=== PATIENT | male | born 1965 | race Caucasian/White ===

== ENCOUNTER → 2017-02-12 | Outpatient (CLI) | payer BC ==
--- NOTE | 2017-02-12 15:22 | RADRPT ---
PROCEDURE: XR Pelvis 1 View and Left Hip 1 Views. CLINICAL INDICATION: Left hip pain TECHNIQUE: AP low pelvis and frog lateral views of the left hip were performed. COMPARISON: None. FINDINGS: The osseous structures are intact. No destructive bony lesions are observed. Severe narrowing of b oth hip joints is observed. Osteophytosis margins of the right acetabulum and along the margins of the left acetabulum and femoral head. Phleboliths are noted in the pelvis. IMPRESSION: Severe osteoarthritis of both hips. If further characterization is needed CT or MRI could be helpful. RPTAT: AA .Mick Nascimento MD, Date Time Electronically viewed and signed by .Mick Nascimento MD, on 02/12/2017 15:22 .P/
--- NOTE | 2017-02-13 03:39 | HKNOTE ---
DATE OF SERVICE: 02/12/2017 Dr. Taj Mcmillan [address] [place] [id number] Dear Taj, Thank you for referring Karel Negrete. He was seen in my office today complaining of pain in his lef t hip. He has severe degenerative osteoarthritis of both hips and will need to have a left hip replacement in the relatively near future followed by a right hip replacement. Unfortunately, he is markedly obese and weighs more than 350 pounds. There is no doubt that he will need to have the left hip surgery in the relatively near future, but I have encouraged him to try and lose weight. In particular, I asked him to return to you to discus s the pros and cons of gastric bypass procedure which may be the fastest way for him to achieve the goal of a 50 pound weight loss. Thank you for your confidence in referring him to my care. Enclosed is a copy of my office notes fo r your records. With warmest regards, Dictated By: RUTHY VIDAL MD HH/NTS Conf#: [id number] DID#: [id number] CC: Taj Mcmillan MD;*EndCC*
--- NOTE | 2017-02-13 03:39 | HKNOTE ---
DATE OF SERVICE: 02/12/2017 REFERRING PHYSICIAN: Dr. Taj Mcmillan [address] [address] MAIN COMPLAINT: Pain in the right hip. HISTORY OF MAIN COMPLAINT: The patient is a 51-year-old male who complains of pain in the right hang in which has been present now for about 2 years. The pain has become progressively worse. He has n ot been seen by any orthopedic surgeon for this problem. The patient has a great deal of stiffness in his right hip, but he gets minimal pain in the groin or right hip area. Dr. Taj Mcmillan, has r eferred him to me for further evaluation of his painful hip. PRESENT COMPLAINTS: The patient's left hip pain is localized to the groin and radiates down the ant erior thigh to just above the knee. The pain is "severe at times." On a bad day, he cannot walk mo re than 100 feet without stopping. On a good day, he can perhaps walk 4 to 5 blocks without stoppin g. On a bad day, he gets pain with every step that he takes. His pain is aggravated by walking, st air climbing, and any attempt at running. He does get mild rest pain at times. Pain occasionally w akes him up at night. He has been taking [id number] pain medications. He has recently had so me pain in the back with radiation to both buttocks. He has never had any medical care for his back . No MRIs have been obtained. No chiropractic treatments. He does not get any numbness or tinglin g in his legs. He does not use a walking aid. He does limp all the time. He does not have a shoe lift. He has a great deal of difficulty clippin g his toenails and putting on his shoes and socks. SPORTING ACTIVITIES: The patient used to play basketball but now is no longer able to do so. 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 PAST ORTHOPEDIC HISTORY: PREVIOUS ORTHOPEDIC OPERATIONS: Achilles tendon rupture, repaired by Dr. Wright in 2007. PRIOR CORTISONE INTAKE: None. ALCOHOL INTAKE: Minimal. OTHER JOINT PROBLEMS: Minimal pain in the right hip, stiffness in the right hip. BLOOD TESTS FOR ARTHRITIS: None. PRIOR INJURIES TO HIPS OR KNEES: None. 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 He spends most of his time sitting at a [employer] uter. PAST MEDICAL HISTORY 1. Hypertension. 2. Obesity. PAST SURGICAL HISTORY: Achilles tendon repair 2007. DRUG ALLERGIES: NONE. MEDICATIONS: 1. Lipitor 10 mg daily. 2. Lisinopril 5 mg daily. 3. Prilosec 40 mg daily. 4. Aspirin 81 mg daily. FAMILY HISTORY: Father age 72, alive and well. Mother age 72, alive and has had a stroke. SYSTEMS REVIEW: Prone to heartburn, hypertension, occasional swelling of the ankles. Otherwise neg ative. HABITS: The patient does not smoke. He very rarely takes alcoholic beverages. 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 Taj Mcmillan [address] [place], [place] [id number] PHYSICAL EXAMINATION: GENERAL: The patient is an obese but otherwise fit-looking 51-year-old male. VITAL SIGNS: Height 6 feet 1, weight 250 pounds, blood pressure 130/75, temperature 98.4. GAIT: The patient's gait is antalgic. He does not use a walking aid. NEUROLOGIC: Motor examination reveals no muscle deficit in the lower extremities. Deep tendon refle xes in the lower extremities: Right knee jerk plus, left knee jerk plus, right ankle jerk plus, lef t ankle jerk plus. Straight leg raising is negative bilaterally at 80 degrees. Lasegue and SOHN valeria ts are negative. LEFT HIP: Flexion 80 degrees, external rotation 20, internal rotation 20, abduction 25, adduction 3 0. Severe pain in the left groin at the limits of motion. No tenderness anywhere around the left h ip. RIGHT HIP: Flexion 100, external rotation 20, internal rotation 20, abduction 30, adduction 10. No tenderness anywhere around the right hip. LEFT KNEE: The left knee shows normal alignment. Active and passive extension is 0 degrees. Active and passive flexion is 135 degrees. The medial and lateral collateral ligaments and cruciate ligamen ts are intact. Tylor test is negative. There is no effusion, tenderness, scarring, crepitus, or cy sts. The patella tracks normally. There is no tenderness on the articular surface of the patella or in the patellar groove. The Q angle is normal. RIGHT KNEE: The right knee shows normal alignment. Active and passive extension is 0 degrees. Activ e and passive flexion is 135 degrees. The medial and lateral collateral ligaments and cruciate ligam ents are intact. Tylor test is negative. There is no effusion, tenderness, scarring, crepitus, or cysts. The patella tracks normally. There is no tenderness on the articular surface of the patella o r in the patellar groove. The Q angle is normal. IMAGING: Plain x-rays of the pelvis and hips brought with him from outside were reviewed today. The left hip joint shows an irregular shaped tear of the femoral head, 90% loss of the joint space, osteophyte formation on the femoral neck and acetabulum. Bone quality is good. Imaging of the right hip seen on these same x-rays show loss of sphericity of the femoral head, pascale ed loss of joint space, superior and inferior osteophyte formation, and subchondral sclerosis. DIAGNOSES: 1. Exceedingly severe symptomatic degenerative osteoarthritis of the left hip. 2. Severe nonsymptomatic degenerative osteoarthritis of the right hip. 3. Morbid obesity. 4. Hypertension. MANAGEMENT: The patient is advised that he can expect the symptoms in the left hip to progress. He most certainly will need to have a left hip replacement in the relatively near future. Even though he has no pain in the right hip, it is markedly stiff, and there is no doubt that he juanita l need to have a right hip replacement fairly soon after a left hip replacement [possibly 6 months o r so.] MANAGEMENT: The operation of total hip replacement is discussed with him in a fair amount of detail . The operation and some of the major possible complications of the hip replacement was discussed w ith him. Anterior hip replacement was discussed with him. Most importantly, it was discussed with him that he should try and lose 50 pounds in weight before he considers proceeding with the operatio n. He indicates that he will get back with Dr. Mcmillan to discuss the pros and cons of a gastric byp ass operation. The patient declined a prescription for pain medications or an anti-inflammatory medication. The patient was given my manual titled "Arthritis of the Hip Joint" which contains information alejandro rning the various alternatives of treatment. It includes various forms of conservative treatment, in cluding the use of nonsteroidal anti-inflammatory medications and their dangers. Various surgical al ternatives are discussed. The technique of total hip replacement is discussed in detail, including p ossible complications. Included also is a section on the possible complications of blood transfusion , a section on postoperative precautions, and an exercise program to follow at home after total hip replacement. The long-term care of a total hip replacement implant is also covered in detail. The pa rashad was instructed to read this manual in its entirety since it is, in and of itself, a form of in formed consent. After reading this manual, the patient will make a list of further questions that ma y not have been covered adequately. The patient was further advised that this manual, although exhau stive in nature, is only intended to supplement and complement a one-on-one discussion with me. The patient was referred to my website, [employer]. 1. Exceedingly severe symptomatic degenerative osteoarthritis of the left hip. 2. Severe nonsymptomatic degenerative osteoarthritis of the right hip. 3. Morbid obesity. 4. Hypertension. Dictated By: RUTHY TORRES/HAILEE Conf#: [id number] DID#: [id number] CC: Taj Mcmillan MD;*EndCC*
== END | disposition home or self-care (01) ==
LOC: HKI 15:26
DX: M16.0 Bilateral primary osteoarthritis of hip (principal); I10 Essential (primary) hypertension; E66.01 Morbid (severe) obesity due to excess calories; Z79.82 Long term (current) use of aspirin
CPT/HCPCS: 73502; G0463